=== PATIENT | male | born 2000 | race Caucasian/White ===

== ENCOUNTER 2021-01-03 08:46 | Emergency (ER) | payer SELFPAY ==
--- NOTE | 2021-01-03 09:23 | ER ---
Nurse's Notes [facility] Name: Wilfredo Beck Age: 20 yrs Sex: Male : 2000 Arrival Date: 01/03/2021 Time: 08:51 Bed 7 Private MD: Diagnosis: Acute upper respiratory infection, unspecified;Diarrhea, unspecified;Headache Presentation: 01/03 08:53 Chief complaint: Patient states: runny nose, headache, diarrhea, dry cough, and SOB aa5 that began last night. Pt denies fever. Pt states "my work sent me here to get tested". 08:53 Coronavirus screen: Client presents with at least one sign or symptom that may indicate aa5 coronavirus-19. Standard/surgical mask placed on the client. Provider contacted for isolation considerations. Ebola Screen: Patient negative for fever greater than or equal to 101.5 degrees Fahrenheit, and additional compatible Ebola Virus Disease symptoms. Initial Sepsis Screen: Does the patient meet any 2 criteria? No. Patient's initial sepsis screen is negative. Does the patient have a suspected source of infection? No. Patient's initial sepsis screen is negative. Risk Assessment: Do you want to hurt yourself or someone else? Patient reports no desire to harm self or others. Onset of symptoms was December 2020. 08:53 Acuity: DELMY 4 aa5 08:53 Method Of Arrival: Ambulatory aa5 Historical: - Allergies: 09:09 No Known Allergies; aa5 - Home Meds: 09:09 None [Active]; aa5 - PMHx: 09:09 None; aa5 - PSHx: 09:09 eye; Tonsillectomy; aa5 - Immunization history:: Adult Immunizations unknown. - Social history:: Smoking status: Patient reports the use of cigarette tobacco products, denies chronic smoking, but will smoke occasionally. - Family history:: not pertinent. Screenin:09 Abuse screen: Denies threats or abuse. Nutritional screening: No deficits noted. jd3 Tuberculosis screening: No symptoms or risk factors identified. Fall Risk Ambulatory Aid- None/Bed Rest/Nurse Assist (0 pts). Gait- Normal/Bed Rest/Wheelchair (0 pts) Mental Status- Oriented to own ability (0 pts). Total Ravi Fall Scale indicates No Risk (0-24 pts). Assessment: 09:08 General: Appears in no apparent distress. comfortable, Behavior is calm, cooperative, jd3 appropriate for age. Pain: Complains of pain in head Quality of pain is described as aching. Neuro: Level of Consciousness is awake, alert, obeys commands, Oriented to person, place, time, situation. Cardiovascular: Denies chest pain, Capillary refill < 3 seconds Patient's skin is warm and dry. Respiratory: Reports shortness of breath on exertion cough that is dry, Airway is patent Respiratory effort is even, unlabored, Respiratory pattern is regular, symmetrical, Breath sounds are clear bilaterally. GI: No signs and/or symptoms were reported involving the gastrointestinal system. : No signs and/or symptoms were reported regarding the genitourinary system. EENT: No signs and/or symptoms were reported regarding the EENT system. Derm: Skin is intact, Skin is dry, Skin is normal, Skin temperature is warm. Musculoskeletal: Circulation, motion, and sensation intact. Range of motion: intact in all extremities. 09:35 Reassessment: Patient appears in no apparent distress at this time. Patient and/or jd3 family updated on plan of care and expected duration. Pain level reassessed. Patient is alert, oriented x 3, equal unlabored respirations, skin warm/dry/pink. Vital Signs: 09:08 BP 111 / 70; Pulse 61; Resp 17 S; Temp 98.0(O); Pulse Ox 100% on R/A; Pain 5/10; jd3 09:09 Weight 58.97 kg (R); Height 5 ft. 10 in. (177.80 cm) (R); Pain 5/10; aa5 09:09 Body Mass Index 18.65 (58.97 kg, 177.80 cm) [facility] ED Course: 08:51 Patient arrived in ED. am2 08:53 Arm band placed on Patient placed in an exam room, on a stretcher. aa5 09:03 Bob Alexandre RN is Primary Nurse. j 09:07 Nagi Begum MD is Attending Physician. [facility] 09:08 Triage completed. aa5 09:10 Patient has correct armband on for positive identification. Bed in low position. Call jd3 light in reach. Side rails up X 1. Pulse ox on. NIBP on. 09:21 Patricio Hinton MD is Referral Physician. [facility] 09:35 No provider procedures requiring assistance completed. Patient did not have IV access jd3 during this emergency room visit. Administered Medications: 09:18 Drug: Decadron 4 mg Route: PO; jd3 09:35 Follow up: Response: Medication administered at discharge. jd3 09:18 Drug: Zithromax 500 mg Route: PO; jd3 09:36 Follow up: Response: Medication administered at discharge. jd3 09:18 Drug: Pepcid 20 mg Route: PO; jd3 09:36 Follow up: Response: Medication administered at discharge. jd3 Outcome: 09:22 Discharge ordered by . [facility] 09:35 Discharged to home ambulatory. jd3 09:35 Condition: stable 09:35 Discharge instructions given to patient, Instructed on discharge instructions, follow up and referral plans. medication usage, Demonstrated understanding of instructions, follow-up care, medications, Prescriptions given X 4. 09:36 Patient left the ED. jd3 Signatures: Nagi Begum MD MD cha Calderon, Audri, RN RN nathan5 Delia Bhardwaj Jonathon RN RN jd3
--- NOTE | 2021-01-03 09:23 | EDPHYS ---
Physician Documentation [facility] Name: Wilfredo Beck Age: 20 yrs Sex: Male : 2000 Arrival Date: 01/03/2021 Time: 08:51 Bed 7 Private MD: ED Physician Nagi Begum HPI: 01/03 09:15 This 20 yrs old Male presents to ER via Ambulatory with complaints of covid neal symptoms. 09:15 The patient or guardian reports cough, difficulty breathing. Onset: The neal symptoms/episode began/occurred 3 day(s) ago. Modifying factors: The symptoms are alleviated by nothing. the symptoms are aggravated by nothing. cant taste or smell, upper resp symptoms. Associated signs and symptoms: Pertinent positives: diarrhea. Severity of symptoms: At their worst the symptoms were mild in the emergency department the symptoms are unchanged. The patient has not experienced similar symptoms in the past. Historical: - Allergies: 09:09 No Known Allergies; aa5 - Home Meds: 09:09 None [Active]; aa5 - PMHx: 09:09 None; aa5 - PSHx: 09:09 eye; Tonsillectomy; aa5 - Immunization history:: Adult Immunizations unknown. - Social history:: Smoking status: Patient reports the use of cigarette tobacco products, denies chronic smoking, but will smoke occasionally. - Family history:: not pertinent. ROS: 09:15 Constitutional: Negative for fever, chills, and weight loss, Eyes: Negative for injury, neal pain, redness, and discharge, ENT: Negative for injury, pain, and discharge, Neck: Negative for injury, pain, and swelling, Cardiovascular: Negative for chest pain, palpitations, and edema, Back: Negative for injury and pain, : Negative for injury, bleeding, discharge, and swelling, MS/Extremity: Negative for injury and deformity, Skin: Negative for injury, rash, and discoloration, Psych: Negative for depression, anxiety, suicide ideation, homicidal ideation, and hallucinations, Allergy/Immunology: Negative for hives, rash, and allergies, Endocrine: Negative for neck swelling, polydipsia, polyuria, polyphagia, and marked weight changes, Hematologic/Lymphatic: Negative for swollen nodes, abnormal bleeding, and unusual bruising. 09:15 Respiratory: Positive for cough. 09:15 Abdomen/GI: Positive for diarrhea. 09:15 Neuro: Positive for headache. Exam: 09:15 Constitutional: This is a well developed, well nourished patient who is awake, alert, neal and in no acute distress. Head/Face: Normocephalic, atraumatic. Eyes: Pupils equal round and reactive to light, extra-ocular motions intact. Lids and lashes normal. Conjunctiva and sclera are non-icteric and not injected. Cornea within normal limits. Periorbital areas with no swelling, redness, or edema. ENT: Nares patent. No nasal discharge, no septal abnormalities noted. Tympanic membranes are normal and external auditory canals are clear. Oropharynx with no redness, swelling, or masses, exudates, or evidence of obstruction, uvula midline. Mucous membranes moist. Neck: Trachea midline, no thyromegaly or masses palpated, and no cervical lymphadenopathy. Supple, full range of motion without nuchal rigidity, or vertebral point tenderness. No Meningismus. Chest/axilla: Normal chest wall appearance and motion. Nontender with no deformity. No lesions are appreciated. Cardiovascular: Regular rate and rhythm with a normal S1 and S2. No gallops, murmurs, or rubs. Normal PMI, no JVD. No pulse deficits. Respiratory: Lungs have equal breath sounds bilaterally, clear to auscultation and percussion. No rales, rhonchi or wheezes noted. No increased work of breathing, no retractions or nasal flaring. Abdomen/GI: Soft, non-tender, with normal bowel sounds. No distension or tympany. No guarding or rebound. No evidence of tenderness throughout. Back: No spinal tenderness. No costovertebral tenderness. Full range of motion. Male : Normal genitalia with no discharge or lesions. Skin: Warm, dry with normal turgor. Normal color with no rashes, no lesions, and no evidence of cellulitis. MS/ Extremity: Pulses equal, no cyanosis. Neurovascular intact. Full, normal range of motion. Neuro: Awake and alert, GCS 15, oriented to person, place, time, and situation. Cranial nerves II-XII grossly intact. Motor strength 5/5 in all extremities. Sensory grossly intact. Cerebellar exam normal. Normal gait. Psych: Awake, alert, with orientation to person, place and time. Behavior, mood, and affect are within normal limits. 09:15 Neck: ROM/movement: is normal, no acute changes, Meningeal signs: are not present, Kernig's sign is negative, Brudzinski's sign is negative, Lymph nodes: no appreciated lymphadenopathy. Vital Signs: 09:08 BP 111 / 70; Pulse 61; Resp 17 S; Temp 98.0(O); Pulse Ox 100% on R/A; Pain 5/10; jd3 09:09 Weight 58.97 kg (R); Height 5 ft. 10 in. (177.80 cm) (R); Pain 5/10; aa5 09:09 Body Mass Index 18.65 (58.97 kg, 177.80 cm) aa5 MDM: 09:07 Patient medically screened. [facility] 09:20 Differential diagnosis: bronchitis, flu, URI. Antibiotic administration: Zithromax is neal given. Differential Diagnosis flu. Data reviewed: vital signs, nurses notes, lab test result(s). Data interpreted: phototypesetting equipment monitor: rate is 61 beats/min, rhythm is regular, Pulse oximetry: on room air is 61 %. Counseling: I had a detailed discussion with the patient and/or guardian regarding: the historical points, exam findings, and any diagnostic results supporting the discharge/admit diagnosis, lab results, the need for outpatient follow up, for definitive care, a family practitioner, a computer installation engineer. 03 09:17 Order name: COVID-19 : Document "Date of Symptom Onset" if Symptomatic. eb 01/03 09:32 Order name: CORONAVIRUS EDWV 01/03 09:14 Order name: PO challenge; Complete Time: 09:16 neal Administered Medications: 09:18 Drug: Decadron 4 mg Route: PO; jd3 09:35 Follow up: Response: Medication administered at discharge. jd3 09:18 Drug: Zithromax 500 mg Route: PO; jd3 09:36 Follow up: Response: Medication administered at discharge. jd3 09:18 Drug: Pepcid 20 mg Route: PO; jd3 09:36 Follow up: Response: Medication administered at discharge. jd3 Disposition: 01/03/21 09:22 Discharged to Home. Impression: Acute upper respiratory infection, unspecified, Diarrhea, unspecified, Headache. - Condition is Stable. - Discharge Instructions: Diarrhea, Adult, Cool Mist Vaporizer, Upper Respiratory Infection, Adult, [id number], Diarrhea, Adult, [id number], Aspirin and Your Heart, Cough, Adult. - Prescriptions for dexamethasone 2 mg Oral tablet - take 1 tablet by ORAL route 3 times per day; 15 tablet. Pepcid 20 mg Oral Tablet - take 1 tablet by ORAL route every 12 hours for 15 days; 60 tablet. Zithromax Z- Saeed 250 mg Oral Tablet - take 1 tablet by ORAL route as directed for 5 days Day 1 - take two (2) tablets one time. Day 2, 3, 4 , 5 take one (1) tablet once daily.; 6 tablet. Albuterol Sulfate 90 mcg/actuation - inhale 1-2 puff by INHALATION route every 4-6 hours; 1 Inhaler. - Medication Reconciliation Form, Thank You Letter, Antibiotic Education, Prescription Opioid Use form. - Follow up: Private Physician; When: 2 - 3 days; Reason: Recheck today's complaints, Continuance of care, Re-evaluation by your physician. Follow up: Patricio Hinton MD; When: 2 - 3 days; Reason: Recheck today's complaints, Re-evaluation by your physician. - Problem is new. - Symptoms have improved. Signatures: Dispatcher [employer] EDMS Nagi Begum MD MD cha Calderon, Audri RN RN aa5 Bob Alexandre RN RN jd3 Corrections: (The following items were deleted from the chart) 09:36 09:22 01/03/2021 09:22 Discharged to Home. Impression: Acute upper respiratory jd3 infection, unspecified; Diarrhea, unspecified; Headache. Condition is Stable. Forms are Medication Reconciliation Form, Thank You Letter, Antibiotic Education, Prescription Opioid Use. Follow up: Private Physician; When: 2 - 3 days; Reason: Recheck today's complaints, Continuance of care, Re-evaluation by your physician. Follow up: Patricio Hinton; When: 2 - 3 days; Reason: Recheck today's complaints, Re-evaluation by your physician. Problem is new. Symptoms have improved. neal
[2021-01-03] MEDS ORDERED: AZITHROMYCIN 250 MG TAB ONE (09:36)
[2021-01-03] MEDS ORDERED: dexAMETHasone 4 MG TAB ONE (09:36)
[2021-01-03] MEDS ORDERED: FAMOTIDINE 20 MG TAB ONE (09:37)
[2021-01-03 09:41] VITALS: BP 111/70; TEMP 98; O2SAT 100
== END 2021-01-03 09:36 | disposition home or self-care (01) ==
LOC: ER 08:46
DX: J06.9 Acute upper respiratory infection, unspecified (principal); R19.7 Diarrhea, unspecified; Z20.822 Contact with and (suspected) exposure to COVID-19; F17.210 Nicotine dependence, cigarettes, uncomplicated
CPT/HCPCS: 99283; J8540; U0003